=== PATIENT | male | born 1980 | race Caucasian/White ===

== ENCOUNTER → 2018-03-29 | Outpatient (CLI) | payer OTHER ==
--- NOTE | 2018-03-29 13:33 | DIAGNOSTIC IMAGING REPORT ---
FUSION CT SINUSES W/O HISTORY: 37 years-old Male J32.9 Chronic [id number] MALE WITH RECURRENT ACUTE AND acute on chronic sinus disease with nasal septal deviation COMPARISON: None available TECHNIQUE: Multiple axial CT images of the paranasal sinuses were obtained without the use of IV contrast. Axial [employer] images were also submitted. A dose lowering technique was used consistent with the principals of ANABELL. FINDINGS: Imaged intracranial structures demonstrate no acute abnormality. Orbits are unremarkable. The soft tissues are within normal limits. No skull fracture. Note is made of a metopic suture. Mastoid air cells and middle ear cavities are clear. Maxillary dental implants are noted. There is mild mucoperiosteal thickening of the inferior maxillary sinuses bilaterally. Sphenoid sinuses are clear. The bilateral frontal sinuses are also clear. There is minimal mucosal thickening involving a few anterior ethmoid air cells bilaterally. Minimal rightward bowing and spurring about the nasal septum. The sphenoethmoidal, frontoethmoidal and bilateral maxillary ostiomeatal units are patent. No Adan cell. Torie waldemar appears normal. Moderate sized left santiago bullosa with mild mucosal thickening about the bilateral nasal turbinates. IMPRESSION: 1. Mild mucosal thickening of the maxillary sinuses and ethmoid air cells with patency of the sinus outflow tracts. 2. Moderate sized left santiago bullosa with mild mucosal thickening about the nasal turbinates. 3. Minimal rightward bowing and spurring about the nasal septum. The above report was generated using voice recognition software. It may contain grammatical, syntax or spelling errors. Electronically signed by: Kulwinder Cho M.D. 03/29/2018 1:32 PM Dictated Date/Time: 03/29/2018 1:25 PM
== END | disposition home or self-care (01) ==
LOC: C.CTS 09:07
DX: J32.9 Chronic sinusitis, unspecified (principal); J34.9 Unspecified disorder of nose and nasal sinuses